=== PATIENT | female | born 1935 | race Caucasian/White ===

== ENCOUNTER 2020-07-02 20:16 | Emergency (ER) | payer BC, MEDICARE, OTHER ==
[~2020-07-02] VITALS: Ht 165.1 cm; Wt 50.0 kg
--- NOTE | 2020-07-02 20:30 | NUR ---
PT BIB [facility] FROM HOME, WHERE SHE TRIPPED ON HER O2 TUBING AND FELL FACE FIRST. PT REPORTED NOSEBLEED X5 MIN AND MILD FACIAL BRUISING/SWELLING. PT IS ON ELIQUIS 2.5MG BID. VS PER EMS: 158/85, HR 84, 100% ON BASELINE 2L O2, BS 92. PT ARRIVES TO ED A&OX4, PLEASANT. O2 SWITCHED TO OXYMASK NASAL CANNULA WAS BOTHERING HER NOSE.
--- NOTE | 2020-07-02 23:00 | NUR ---
PT C/O RIB PAIN. CXR ORDERED.
[2020-07-03] VITALS: BP 161/98
--- NOTE | 2020-07-03 00:15 | NUR ---
D/C INSTRUCTIONS & F/U APPT RV'WD WITH PT, SHE VERBALIZES UNDERSTANDING. ASSISTED PT OUT OF ED VIA WC WITH PORTABLE O2. CAB VOUCHER PROVIDED TO PT. PT STATES SHE WILL CALL HER FAMILY ON THE WAY HOME AND THEY WILL HELP HER GET INSIDE FROM THE CAB.
== END 2020-07-03 00:16 | disposition home or self-care (01) ==
LOC: ED 21:27
DX: S00.33XA Contusion of nose, initial encounter (principal); S00.12XA Contusion of left eyelid and periocular area, initial encounter; S00.11XA Contusion of right eyelid and periocular area, initial encounter; R04.0 Epistaxis; I48.91 Unspecified atrial fibrillation; R07.89 Other chest pain; W01.0XXA Fall on same level from slipping, tripping and stumbling without subsequent striking against object, initial encounter; Y93.89 Activity, other specified; Y92.098 Other place in other non-institutional residence as the place of occurrence of the external cause; Y99.8 Other external cause status
CPT/HCPCS: 70450; 70486; 71045; 72125; 99285